=== PATIENT | female | born 1965 | race Two or more races ===

== ENCOUNTER 2020-06-23 00:51 | Emergency (ER) | payer BC ==
[~2020-06-23] VITALS: Ht 149.9 cm; Wt 78.2 kg
[2020-06-23] MEDS ORDERED: METF-960 PO (01:00)
[2020-06-23 01:01] VITALS: BP 136/83
[2020-06-23] MEDS ORDERED: ATOR20TA86 PO (01:01)
[2020-06-23] MEDS ORDERED: TraMADol HCL 50 MG TABLET PO ONE (03:00)
[2020-06-23] MEDS ORDERED: LIDOCAINE 5% TRANSDERMAL PATCH TD ONE (03:00)
== END 2020-06-23 03:32 | disposition home or self-care (01) ==
LOC: EMS 00:54
DX: M70.72 Other bursitis of hip, left hip (principal); E11.9 Type 2 diabetes mellitus without complications; E78.00 Pure hypercholesterolemia, unspecified; Z79.899 Other long term (current) drug therapy; Y93.89 Activity, other specified
CPT/HCPCS: 99283